=== PATIENT | male | born 1965 | race American Indian/Alaskan Native ===

== ENCOUNTER 2020-05-31 09:46 | Day surgery (SDC) | payer OTHER ==
--- NOTE | 2020-05-31 10:15 | NUR ---
PT ARRIVED TO UNIT APPROX 1005, A/0 X 4, PLEASANT/COOPERATIVE, VS TAKEN AND STABLE. PT DENIES ANY PO INTAKE, DENIES ANY CAFFEINE OR MEDICATIONS THIS MORNING OR LAST NIGHT, STATES HE HAS HAD NO BREATHING DIFFICULTY. EDUCATED PT ON CT ANGIOGRAM. PT STATES HE IS HAVING THIS PROCEDURE DUE TO A "HEAVY" FEELING AROUND HEART HE HAS BEEN HAVING.
--- NOTE | 2020-05-31 10:45 | NUR ---
PT TRANSFERRED TO RADIOLOGY VIA STRETCHER,
--- NOTE | 2020-05-31 11:18 | NUR ---
PERIPHERAL IV REMOVED WNL, DISCHARGE INSTRUCTIONS PROVIDED AND PT STATES UNDERSTANDING, DENIES HAVING QUESTIONS. PT REQUESTS TO WALK OUT ON HIS OWN, THIS RN ESCORTED PT TO WAITING ROOM
== END 2020-05-31 23:12 | disposition home or self-care (01) ==
LOC: CT 09:46 → ORD 09:46 → CT 10:00 → ORD 23:12
DX: I25.10 Atherosclerotic heart disease of native coronary artery without angina pectoris (principal); I10 Essential (primary) hypertension; E11.9 Type 2 diabetes mellitus without complications; F41.9 Anxiety disorder, unspecified; F32.9 Major depressive disorder, single episode, unspecified; Z79.84 Long term (current) use of oral hypoglycemic drugs; Z79.899 Other long term (current) drug therapy; E78.5 Hyperlipidemia, unspecified
CPT/HCPCS: 75574; Q9967

== ENCOUNTER 2020-11-14 22:14 | Emergency (ER) | payer OTHER ==
[~2020-11-14] VITALS: Ht 172.7 cm; Wt 77.1 kg
[2020-11-14] MEDS ORDERED: Amoxicillin500 MG PO (22:37)
[2020-11-14] MEDS ORDERED: ESOMEPRAZOLE MA20 MG PO (22:37)
[2020-11-14] MEDS ORDERED: CLAR500 (22:38)
[2020-11-14 23:52] LABS: BASOPHILS ABSOLUTE AUTO 0.03 K/mm3 (0.00-0.23); BASOPHILS PERCENT AUTO 0 % (0-2); EOSINOPHILS PERCENT AUTO 0 % (0-6); Hematocrit 44.4 % (37.0-53.0); Hemoglobin 15.2 g/dL (13.5-17.5); IMMATURE GRAN ABSOLUTE AUTO 0.04 K/mm3 (0.00-0.10); IMMATURE GRAN PERCENT AUTO 0 % (0-1); LYMPHOCYTES ABSOLUTE AUTO 1.05 K/mm3 (0.84-5.20); LYMPHOCYTES PERCENT AUTO 11 % (21-46); MONOCYTES ABSOLUTE AUTO 0.53 K/mm3 (0.16-1.47); MONOCYTES PERCENT AUTO 5 % (4-13); Mean Corpuscular HGB 30.1 pg (26.0-34.0); Mean Corpuscular HGB Conc 34.2 g/dL (31.5-36.5); Mean Corpuscular Volume 88 fL (80-100); Mean Platelet Volume 11.1 fL (9.1-12.4); NEUTROPHILS ABSOLUTE AUTO 8.33 K/mm3 (1.96-9.15); NEUTROPHILS PERCENT AUTO 84 % (41-73); Platelet Count 167 K/mm3 (150-400); RDW Coefficient Variation 13.9 % (11.7-14.2); RDW Standard Deviation 44.6 fL (35.1-46.3); Red Blood Cell Count 5.05 M/mm3 (4.30-5.90); White Blood Cell Count 9.98 K/mm3 (4.00-11.30)
[2020-11-15 00:06] LABS: Alanine Aminotransfer (ALT/SGP 33 U/L (12-78); Albumin, Blood 3.6 g/dL (3.4-5.0); Albumin/Globulin Ratio 0.8 (0.8-1.8); Alk Phos 84 U/L (50-136); Anion Gap 8 mmol/L (6-16); Aspartate Aminotrans (AST/SGOT 32 U/L (12-37); Bilirubin, Total 0.4 mg/dL (0.1-1.0); Blood Urea Nitrogen 9 mg/dL (8-24); Bun/Creatinine Ratio 9.5 (12.0-20.0); CO2, Blood 27 mmol/L (21-32); Calcium, Blood 8.5 mg/dL (8.5-10.1); Chloride, Blood 102 mmol/L (98-108); Creatinine, Blood 0.95 mg/dL (0.60-1.20); Globulin, Blood 4.4 g/dL (2.2-4.0); Glomerular Filtration Rate >60 (60-); Glucose, Blood 168 mg/dL (70-99); Potassium, Blood 3.8 mmol/L (3.5-5.5); Sodium, Blood 137 mmol/L (136-145)
[2020-11-15] MEDS ORDERED: DIAZEPAM5 M2 PO (00:09)
[2020-11-15] MEDS ORDERED: PRAV20 (00:09)
[2020-11-15] MEDS ORDERED: OMEPRAZOLE DR 20 MG (00:10)
[2020-11-15] MEDS ORDERED: LISINOPRIL 40 MG TAB (00:10)
[2020-11-15] MEDS ORDERED: GLUCOPHAGE1000 M5 PO (00:10)
[2020-11-15 00:59] LABS: Troponin I <0.015 ng/mL (0.000-0.040)
== END 2020-11-15 03:59 | disposition home or self-care (01) ==
LOC: ER 22:14
PROVIDERS: Physician Assistant
DX: K21.9 Gastro-esophageal reflux disease without esophagitis (principal); Z79.899 Other long term (current) drug therapy
CPT/HCPCS: 36415; 80053; 83690; 84484; 85025; 93005; 93010; 96374; 96375; 99284; A9270; C9113; J2270; J7030

== ENCOUNTER 2023-04-08 06:52 | Day surgery (SDC) | payer MEDICARE, OTHER ==
[2023-04-08] VITALS (9 sets, daily range): BP systolic 123–179; BP diastolic 85–110
[~2023-04-08] VITALS: Ht 172.7 cm; Wt 89.1 kg
[~2023-04-08 06:52] MED LIST: Amoxicillin500 MG PO; CLAR500; DIAZEPAM5 M2 PO; DICLOFENAC SOD2.5 M2; ESOMEPRAZOLE MA20 MG PO; GLUCOPHAGE1000 M5 PO; HYDHCL25 PO; LISINOPRIL 40 MG TAB; METF500 PO; OMEP20ER PO; OMEPRAZOLE DR 20 MG; PRAV20; PRAVASTATIN SOD40 MG PO; SERT100 PO
[2023-04-08] MEDS ORDERED: RYBELSUS3 MG PO (07:08)
[2023-04-08] MEDS ORDERED: ZESTRIL40 M1 PO (07:08)
[2023-04-08] MEDS ORDERED: Amlodipine Besy10 MG PO (07:09)
[2023-04-08] MEDS ORDERED: GLIP10 PO (07:10)
[2023-04-08] MEDS ORDERED: QUETIAPINE FUM150 MG PO (07:11)
[2023-04-08] MEDS ORDERED: 1/2 NS 250ml250 ML (07:11)
[2023-04-08] MEDS ORDERED: TEMA30 PO (07:12)
--- NOTE | 2023-04-08 07:34 | NUR ---
Ambulatory in Day Surgery History, Chart, Medications and Allergies reviewed before start of procedure. Pre-Op teaching done. Pt verbalizes understanding. Patient States Post-Procedure ride home has been arranged.
--- NOTE | 2023-04-08 09:43 | NUR ---
Dressing to procedure site clean, dry, intact with no visible drainage, swelling, erythema or bruising noted. Discharge instructions reviewed with patient. Patient verbalizes understanding. Copy given to patient to take home.
--- NOTE | 2023-04-08 10:05 | NUR ---
Discharged via wheelchair to private car for ride home.
== END 2023-04-08 10:07 | disposition home or self-care (01) ==
LOC: ORSCMMR 06:52 → ORD 08:00 → ORSCMMR 10:07
PROVIDERS: Surgery
PROC: 0WQF0ZZ Repair Abdominal Wall, Open Approach (ICD-10-PCS; principal; 2023-04-08 08:00)
DX: K42.0 Umbilical hernia with obstruction, without gangrene (principal); I10 Essential (primary) hypertension; E11.9 Type 2 diabetes mellitus without complications; F32.A Depression, unspecified; Z79.84 Long term (current) use of oral hypoglycemic drugs; Z79.899 Other long term (current) drug therapy
CPT/HCPCS: 82947; A9270; J0330; J0690; J1100; J2405; J2704; J3010; J7120

== ENCOUNTER 2023-08-11 19:01 | Emergency (ER) | payer MEDICARE, OTHER ==
[~2023-08-11] VITALS: Ht 172.7 cm; Wt 86.2 kg
[~2023-08-11 19:01] MED LIST changes: +1/2 NS 250ml250 ML; +Amlodipine Besy10 MG PO; +GLIP10 PO; +QUETIAPINE FUM150 MG PO; +RYBELSUS3 MG PO; +TEMA30 PO; +ZESTRIL40 M1 PO
[2023-08-11] MEDS ORDERED: ROSUVASTATIN CA40 MG PO (19:12)
[2023-08-11 19:22] LABS: BASOPHILS ABSOLUTE AUTO 0.03 K/mm3 (0.00-0.23); BASOPHILS PERCENT AUTO 0 % (0-2); EOSINOPHILS ABSOLUTE AUTO 0.08 K/mm3 (0.00-0.68); EOSINOPHILS PERCENT AUTO 1 % (0-6); Hematocrit 42.8 % (37.0-53.0); Hemoglobin 14.5 g/dL (13.5-17.5); IMMATURE GRAN ABSOLUTE AUTO 0.01 K/mm3 (0.00-0.10); IMMATURE GRAN PERCENT AUTO 0 % (0-1); LYMPHOCYTES PERCENT AUTO 45 % (21-46); MONOCYTES PERCENT AUTO 7 % (4-13); Mean Corpuscular HGB Conc 33.9 g/dL (31.5-36.5); Mean Corpuscular Volume 88 fL (80-100); Mean Platelet Volume 10.9 fL (9.1-12.4); NEUTROPHILS ABSOLUTE AUTO 3.39 K/mm3 (1.96-9.15); NEUTROPHILS PERCENT AUTO 47 % (41-73); Platelet Count 254 K/mm3 (150-400); RDW Coefficient Variation 13.5 % (11.7-14.2); Red Blood Cell Count 4.84 M/mm3 (4.30-5.90); White Blood Cell Count 7.31 K/mm3 (4.00-11.30)
[2023-08-11] MEDS ORDERED: HYDCOR2.5C PR (19:36)
[2023-08-11] MEDS ORDERED: MIRALAX11914 PO (19:36)
[2023-08-11 19:41] LABS: Albumin, Blood 3.9 g/dL (3.4-5.0); Bilirubin, Total 0.4 mg/dL (0.1-1.0); Bun/Creatinine Ratio 12.4 (12.0-20.0); Calcium, Blood 8.8 mg/dL (8.5-10.1); Creatinine, Blood 0.81 mg/dL (0.60-1.20); Globulin, Blood 3.9 g/dL (2.2-4.0); Potassium, Blood 3.9 mmol/L (3.5-5.5); Total Protein, Blood 7.8 g/dL (6.4-8.2)
[2023-08-11 20:24] VITALS: BP 163/95
== END 2023-08-11 20:25 | disposition home or self-care (01) ==
LOC: ER 19:01
PROVIDERS: Student in an Organized Health Care Education/Training Program
DX: K64.4 Residual hemorrhoidal skin tags (principal); K62.5 Hemorrhage of anus and rectum
CPT/HCPCS: 80053; 85025; 86850; 86900; 86901; 99283

== ENCOUNTER 2024-02-08 16:13 | Emergency (ER) | payer MEDICARE, OTHER ==
[~2024-02-08] VITALS: Ht 172.7 cm; Wt 88.5 kg
[~2024-02-08 16:13] MED LIST changes: +HYDCOR2.5C PR; +MIRALAX11914 PO; +ROSUVASTATIN CA40 MG PO
[2024-02-08 16:32] VITALS: BP 157/107
[2024-02-08] MEDS ORDERED: Tetracaine HCl/Pf 0.5% Opth Soln 4 ml RIGHTEYE ONE (21:00)
[2024-02-08] MEDS ORDERED: Fluorescein Sod 1MG Opth Strips RIGHTEYE ONE (21:00)
== END 2024-02-08 21:31 | disposition home or self-care (01) ==
LOC: ER 16:13
DX: H11.31 Conjunctival hemorrhage, right eye (principal); Z79.899 Other long term (current) drug therapy; E11.9 Type 2 diabetes mellitus without complications; I10 Essential (primary) hypertension
CPT/HCPCS: A9270